=== PATIENT | female | born 1985 | race American Indian/Alaskan Native ===

== ENCOUNTER 2016-08-17 13:13 | Emergency (ER) | payer MEDICAID ==
[2016-08-17 15:12] LABS: Basophils % (Auto) 0.4 % (0.0-1.8); Eosinophils % (Auto) 0.9 % (0.0-4.3); Hematocrit 37.3 % (30.3-42.9); Hemoglobin 12.2 gm/dl (10.1-14.3); Mean Corpuscular HGB Conc 33 % (30-34); Mean Corpuscular Hemoglobin 31 pg (28-32); Mean Corpuscular Volume 95 fl (79-97); Platelet Count 259 K/mm3 (140-440); Red Blood Count 3.93 M/mm3 (3.65-5.03); Red Cell Distribution Width 13.9 % (13.2-15.2); White Blood Count 8.6 K/mm3 (4.5-11.0)
[2016-08-17 15:49] LABS: Bilirubin,Urine NEG (Negative); Blood,Urine LG (Negative); Ketones,Urine NEG (Negative); Leukocyte Esterase,Urine NEG (Negative); Mucus,Urine FEW /HPF; Nitrite,Urine NEG (Negative); Protein,Urine <15 mg/dL mg/dL (Negative); Urobilinogen,Urine < 2.0 mg/dL (<2.0); WBC,Urine < 1.0 /HPF (0.0-6.0)
[2016-08-17 15:53] LABS: RBC,Urine > 182.0 /HPF (0.0-6.0)
--- NOTE | 2016-08-17 17:19 | Emergency Department Report ---
ED HPI - General Chief complaint: Vaginal Bleeding Stated complaint: 12WKS AND BLEEDING Time Seen by Provider: 08/17/16 16:41 Source: patient Mode of arrival: Ambulatory Limitations: No Limitations - History of Present Illness Initial comments: 31-year-old female with a past medical history of non-insulin dependent diabetes presents to the hospital complains of vaginal bleeding for the past 2 days. Patient is approximately 12 weeks . This is her third with a history of 2 children, no miscarriages, no abortions. Patient states she has been spotting for 2 days and mostly noticed the bleeding after urination. No pain reported. Patient was seen by me June 23 with and had a beta hCG of 605 at that time. She declined ultrasound and left the department without complete workup. Patient reports that she had outpatient ultrasound performed 1 week ago and states they were unable to see a heartbeat and her beta hCG was in the 900s. Patient called the [facility] office prior to arrival and was deferred to the ED. Patient has since restarted her metformin but did not take her a.m. dose. - Related Data Home Medications Medication Instructions Recorded Confirmed Last Taken Metformin HCl [Metformin HCl ER] 500 mg PO DAILY 08/17/16 08/17/16 Unknown Previous Rx's Medication Instructions Recorded Last Taken Type Vit-Fe Fumar-FA [ 1 tab PO QDAY #30 tablet 06/24/16 Unknown Rx Vitamin] Allergies Allergy/AdvReac Type Severity Reaction Status Date / Time Fish Containing Products Allergy Itching Verified 06/23/16 21:32 Penicillins Allergy Hives Verified 06/23/16 21:32 iv dye Allergy Hives Uncoded 06/23/16 21:32 ED Review of Systems ROS: Stated complaint: 12WKS AND BLEEDING Other details as noted in HPI Comment: All other systems reviewed and negative Other: Constitutional: No fevers chills Eyes: No eye pain visual changes ENT: No ear pain or throat pain Neck: Denies pain Respiratory: Denies cough wheezing shortness of breath Cardiovascular: Denies chest pain, palpitations, syncope GI: Denies abdominal pain : Denies dysuria Musculoskeletal: Denies back pain Skin: Denies rash, lesions, erythema Neurologic: Denies headache, numbness, weakness Psychiatric: Denies suicidal ideation, hallucinations ED Past Medical Hx - Past Medical History Previous Medical History?: Yes Hx Diabetes: Yes ([id number]) Additional medical history: vaginal delivery x 1 - Surgical History Past Surgical History?: Yes Additional Surgical History: - Social History Smoking Status: Current Every Day Smoker Substance Use Type: Prescribed - Medications Home Medications: Home Medications Medication Instructions Recorded Confirmed Last Taken Type Vit-Fe Fumar-FA [ 1 tab PO QDAY #30 tablet 06/24/16 08/17/16 Unknown Rx Vitamin] Metformin HCl [Metformin HCl ER] 500 mg PO DAILY 08/17/16 08/17/16 Unknown History ED Physical Exam - General Limitations: No Limitations - Other Other exam information: General: No limitations, patient is alert in no acute distress Head exam: Atraumatic, normocephalic Eyes exam: Normal appearance, pupils equal reactive to light, extraocular movements intact ENT: Moist mucous membrane, normal oropharynx Neck exam: Normal inspection, full range of motion, no meningismus nontender Respiratory exam: Clear to auscultation bilateral, no wheezes, rales, crackles Cardiovascular: Normal rate and rhythm, normal heart sounds Abdomen: Soft, nondistended, and nontender, with normal bowel sounds, no rebound, or guarding Extremity: Full range of motion normal inspection no deformity Back: Normal Inspection, full range of motion, no tenderness Neurologic: Alert, oriented x3, cranial nerves intact, no motor or sensory deficit Psychiatric: normal affect, normal mood Skin: Warm, dry, intact ED Course Vital Signs 08/17/16 08/17/16 08/17/16 14:06 16:49 18:53 Temperature 98.4 F 98.6 F Pulse Rate 83 78 75 Respiratory 20 16 16 Rate Blood Pressure 128/79 Blood Pressure 127/80 120/78 [Left] O2 Sat by Pulse 100 99 99 Oximetry 08/17/16 08/17/16 08/17/16 18:59 19:00 19:10 Temperature Pulse Rate Respiratory Rate Blood Pressure 127/74 127/74 127/74 Blood Pressure [Left] O2 Sat by Pulse 100 100 Oximetry 08/17/16 08/17/16 08/17/16 19:20 19:30 19:40 Temperature Pulse Rate Respiratory Rate Blood Pressure 127/74 127/74 127/74 Blood Pressure [Left] O2 Sat by Pulse 100 100 100 Oximetry 08/17/16 08/17/16 08/17/16 19:47 19:48 19:50 Temperature 98.3 F Pulse Rate 78 Respiratory 12 12 Rate Blood Pressure 127/74 Blood Pressure 124/75 [Left] O2 Sat by Pulse 100 100 100 Oximetry 08/17/16 20:00 Temperature Pulse Rate Respiratory Rate Blood Pressure 127/74 Blood Pressure [Left] O2 Sat by Pulse 100 Oximetry - Reevaluation(s) Reevaluation #1: 08/17/16 20:00 pt remained stable - Consultations Consultation #1: 08/17/16 19:59 Case d/w with [facility] Dr Mabry, rec f/u with her [facility] [facility] [facility] Dr Pichardo ED Medical Decision Making - Lab Data Result diagrams: 08/17/16 14:54 Lab Results 08/17/16 08/17/16 08/17/16 Range/Units 14:54 14:54 15:21 WBC 8.6 (4.5-11.0) K/mm3 RBC 3.93 (3.65-5.03) M/mm3 Hgb 12.2 (10.1-14.3) gm/dl Hct 37.3 (30.3-42.9) % MCV 95 (79-97) fl MCH 31 (28-32) pg MCHC 33 (30-34) % RDW 13.9 (13.2-15.2) % Plt Count 259 (140-440) K/mm3 Lymph % (Auto) 37.0 H (13.4-35.0) % Harper % (Auto) 3.6 (0.0-7.3) % Eos % (Auto) 0.9 (0.0-4.3) % Baso % (Auto) 0.4 (0.0-1.8) % Lymph # 3.2 (1.2-5.4) K/mm3 Harper # 0.3 (0.0-0.8) K/mm3 Eos # 0.1 (0.0-0.4) K/mm3 Baso # 0.0 (0.0-0.1) K/mm3 Seg Neutrophils % 58.1 (40.0-70.0) % Seg Neutrophils # 5.0 (1.8-7.7) K/mm3 HCG, Quant 1306 H (0-4) mIU/mL Urine Color Yellow (Yellow) Urine Turbidity Clear (Clear) Urine pH 8.0 H (5.0-7.0) Ur Specific Woodman 1.018 (1.003-1.030) Urine Protein <15 mg/dl (Negative) mg/dL Urine Glucose (UA) Neg (Negative) mg/dL Urine Ketones Neg (Negative) mg/dL Urine Blood Lg (Negative) Urine Nitrite Neg (Negative) Urine Bilirubin Neg (Negative) Urine Urobilinogen < 2.0 (<2.0) mg/dL Ur Leukocyte Esterase Neg (Negative) Urine WBC (Auto) < 1.0 (0.0-6.0) /HPF Urine RBC (Auto) > 182.0 (0.0-6.0) /HPF U Epithel Cells (Auto) 2.0 (0-13.0) /HPF Urine Mucus Few /HPF - Radiology Data Radiology results: report reviewed (US transvag/pelvic: Likely demise at 6 weeks 1 days no heart tone) - Medical Decision Making Patient ultrasound suggestive of demise which sounds like a similar reading to her report last month. Case discussed with [employer] [facility] [facility] and outpatient follow -up with her physician suggested since no significant bleeding, anemia, pain or instability. Patient blood type is A+ that she does not require RhoGAM - Differential Diagnosis ectopic, miscarriage, threatened Critical Care Time: No Critical care attestation.: If time is entered above; I have spent that time in minutes in the direct care of this critically ill patient, excluding procedure time. ED Disposition Clinical Impression: Miscarriage Disposition: DISCHARGED TO HOME OR SELFCARE Is pt being admited?: No Condition: Stable Instructions: Spontaneous Miscarriage (ED) Additional Instructions: At this time ultrasound shows a 6 week 1 day baby with no signs of a heart beat. It is likely that you have had demise or of the baby since there is no heartbeat at this time. To be certain this ultrasound and your baby hormone levels need to be correlated to your previous workup in the office and you will need close follow-up workup to ensure that your baby hormone is decreasing and not increasing. Until this occurs I cannot say for certainty that your are having a miscarriage but only that it is likely. Return to the ER if he did note significant pain, vaginal bleeding, or lightheadedness/ weakness. Otherwise follow up with your [employer] [facility] doctor. Your baby home ([facility] [place]) today is 1306 Referrals: Dr Pichardo, [employer] [facility] [facility] [Other] - 2-3 Days Time of Disposition: 20:50
--- NOTE | 2016-08-17 19:18 | Ultrasound Report ---
FINAL REPORT PROCEDURE: US OB TRANSVAGINAL TECHNIQUE: Real-time transabdominal and transvaginal sonography of the uterus, placenta, amniotic fluid, adnexa, and fetus was performed with image documentation. Measurements were obtained to determine age/size. M-mode Doppler was used to document heartbeat. CPT 06103 [place] [address]91 HISTORY: vag bleeding, COMPARISON: No prior studies are available for comparison. FINDINGS: Gestational sac appears to have slightly irregular contour. Mean sac diameter is 4 cm corresponding to 9 weeks 3 days gestational age. There is suspicion for a tiny pole but this only measures 4 millimeters corresponding to 6 weeks 1 day gestational age. No heart activity is identified. Findings are worrisome for demise but correlation with serial quantitative beta HCG levels is recommended. Right ovary measures 2.7 x 1.4 x 1.5 cm. Left ovary measures 3.9 x 1.7 x 3.0 cm. No adnexal masses or free pelvic fluid are seen. IMPRESSION: Findings are concerning for demise at around 6 weeks 1 day gestational age. Correlation with serial quantitative beta HCG levels is recommended for confirmation.
--- NOTE | 2016-08-17 19:19 | Ultrasound Report ---
FINAL REPORT PROCEDURE: US OB \T\lt; = 14 WEEKS FETUS TECHNIQUE: Real-time transabdominal and transvaginal sonography of the uterus, placenta, amniotic fluid, adnexa, and fetus was performed with image documentation. Measurements were obtained to determine age/size. M-mode Doppler was used to document heartbeat. CPT 03515 and 72348 HISTORY: vag bleeding, COMPARISON: No prior studies are available for comparison. FINDINGS: ADDITIONAL GESTATION: None. Gestational sac appears to have slightly irregular contour. Mean sac diameter is 4 cm corresponding to 9 weeks 3 days gestational age. There is suspicion for a tiny pole but this only measures 4 millimeters corresponding to 6 weeks 1 day gestational age. No heart activity is identified. Findings are worrisome for demise but correlation with serial quantitative beta HCG levels is recommended. Right ovary measures 2.7 x 1.4 x 1.5 cm. Left ovary measures 3.9 x 1.7 x 3.0 cm. No adnexal masses or free pelvic fluid are seen. IMPRESSION: Findings are concerning for demise at around 6 weeks 1 day gestational age. Correlation with serial quantitative beta HCG levels is recommended for confirmation.
[2016-08-17 19:52] VITALS: BP 127/74
== END 2016-08-17 21:00 | disposition home or self-care (01) ==
LOC: ED 13:13
DX: O03.9 Complete or unspecified spontaneous abortion without complication (principal); O26.891 Other specified pregnancy related conditions, first trimester; E11.9 Type 2 diabetes mellitus without complications; Z88.0 Allergy status to penicillin; F17.200 Nicotine dependence, unspecified, uncomplicated; Z88.9 Allergy status to unspecified drugs, medicaments and biological substances; Z91.013 Allergy to seafood; Z3A.12 12 weeks gestation of pregnancy
CPT/HCPCS: 36415; 76801; 76817; 81001; 84702; 85025; 86850; 86900; 86901